=== PATIENT | male | born 1990 ===

== ENCOUNTER 2017-08-16 18:57 | Emergency (ER) | payer OTHER, BC ==
[2017-08-16 19:07] VITALS: BMI 24.2
[2017-08-16 19:09] VITALS: BP 127/78; PULSE 81; RESP 20; TEMP 99; O2SAT 99
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
--- NOTE | 2017-08-17 08:50 | RAD ---
Right scapula two views History: Pain. Comparison: None available. Findings No evidence for acute displaced fracture or dislocation. Right shoulder joint and AC joint appears grossly preserved. Small nodular density at the right lung apex may represent a calcified granuloma and or small nodule. Impression Negative acute. If pain persists, consider MRI.
== END 2017-08-16 20:28 | disposition home or self-care (01) ==
LOC: C.ER 18:57
DX: S46.911A Strain of unspecified muscle, fascia and tendon at shoulder and upper arm level, right arm, initial encounter (principal); S40.011A Contusion of right shoulder, initial encounter; X58.XXXA Exposure to other specified factors, initial encounter